=== PATIENT | female | born 1955 | race Caucasian/White ===

== ENCOUNTER 2025-08-30 13:27 | Outpatient (CLI) | payer MEDICARE, OTHER | END 2025-08-30 13:28 | disposition home or self-care (01) | LOC: SCSBT 13:27 | PROVIDERS: ATTEND Internal Medicine | DX: Z78.0 Asymptomatic menopausal state (principal); M81.0 Age-related osteoporosis without current pathological fracture | CPT/HCPCS: 77080 ==